=== PATIENT | male | born 1990 | race Caucasian/White ===

== ENCOUNTER 2022-01-15 12:05 | Emergency (ER) | payer MEDICAID ==
[~2022-01-15] VITALS: Ht 172.7 cm; Wt 79.4 kg
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
--- NOTE | 2022-01-15 12:16 | NUR ---
5150 HOLD BY RICHARD
--- NOTE | 2022-01-15 13:15 | NUR ---
DR CASPER AT BEDSIDE FOR EVAL.
[2022-01-15] MEDS ORDERED: LORAZEPAM INJ 2 MG/ML VIAL ONE (13:28)
[2022-01-15] MEDS ORDERED: OLANZAPINE 10 MG VIAL IM ONE ×2 (13:28→14:00)
[2022-01-15] MEDS ORDERED: LORAZEPAM 1 MG TABLET PO ONE (13:30)
--- NOTE | 2022-01-15 13:30 | NUR ---
BILLPOSTER AT BEDSIDE FOR BLOOD DRAW.
[2022-01-15 13:40] LABS: BASOPHILS % (AUTO) 0.2 % (0.0-2.0); EOSINOPHILS % (AUTO) 0.2 % (0.0-6.0); HEMATOCRIT 43 % (39-51); HEMOGLOBIN 15.2 g/dL (13.5-17.5); LYMPHOCYTES # (AUTO) 1.9 K/uL (0.8-4.8); LYMPHOCYTES % (AUTO) 18.7 % (20.0-44.0); MEAN CORPUSCULAR HGB CONC 35 g/dl (31.0-36.0); MEAN CORPUSCULAR VOLUME 92 fL (80-96); MONOCYTES # (AUTO) 0.9 K/uL (0.1-1.30); MONOCYTES % (AUTO) 8.5 % (2.0-12.0); NEUTROPHILS # (AUTO) 7.3 K/uL (1.8-8.9); NEUTROPHILS % (AUTO) 72.4 % (43.0-81.0); PLATELET COUNT (AUTO) 404 K/uL (150-450); RED BLOOD CELL COUNT(AUTO) 4.74 MIL/uL (4.5-6.0); WHITE BLOOD COUNT (AUTO) 10.1 K/uL (4.3-11.0)
[2022-01-15] MEDS ORDERED: LORAZEPAM INJ 2 MG/ML VIAL IM ONE (14:00)
[2022-01-15 14:03] LABS: CALCIUM, SERUM 10.3 mg/dL (8.5-10.1); CARBON DIOXIDE 27 mmol/L (21-32); CHLORIDE 102 mmol/L (98-107); GLUCOSE 97 mg/dL (74-106); POTASSIUM 3.6 mmol/L (3.5-5.1); SODIUM SERUM 142 mmol/L (136-145); UREA NITROGEN, BLOOD 9 mg/dL (7-18)
[2022-01-15 14:15] LABS: ALANINE AMINOTRANSFERASE 21 U/L (12-78); ALBUMIN 4.5 g/dL (3.4-5.0); ALCOHOL, BLOOD < 3 mg/dL (0-0); ALKALINE PHOSPHATASE 69 U/L (46-116); ASPARTATE AMINOTRANSFERASE 24 U/L (15-37); BILIRUBIN,DIRECT 0.3 mg/dL (0.0-0.2); BILIRUBIN,TOTAL 1.2 mg/dL (0.2-1.0); TOTAL PROTEIN, SERUM 8.1 g/dL (6.4-8.2)
--- NOTE | 2022-01-15 14:24 | NUR ---
URINE SAMPLE COLLECTED. SENT TO LAB.
[2022-01-15 14:26] LABS: ACETAMINOPHEN < 10 ug/ml (10-30)
[2022-01-15 15:03] LABS: BILIRUBIN,URINE NEGATIVE (NEGATIVE); COLOR,URINE YELLOW (YELLOW); LEUKOCYTE ESTERASE ,URINE NEGATIVE (NEGATIVE); NITRITE, URINE NEGATIVE (NEGATIVE); PROTEIN,URINE 1+ mg/dl (NEGATIVE); UGLUCOSE NEGATIVE (NEGATIVE); UROBILINOGEN,URINE 0.2 EU/dL (0.2)
[2022-01-15 15:14] LABS: BACTERIA,URINE Few /HPF (None Seen); RBC,URINE 0-2 /HPF (0-2); SQUAMOUS EPITHELIAL CELL,UR Few /HPF (None Seen); WBC,URINE 0-2 /HPF (0-3)
[2022-01-15 15:15] LABS: URINE AMORPHOUS PHOSPHATES Moderate /HPF (None Seen)
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
--- NOTE | 2022-01-15 22:01 | NUR ---
MONTRELL PAGED FOR PSYCH EVAL
--- NOTE | 2022-01-15 23:11 | NUR ---
MONTRELL AT PT'S BEDSIDE FOR EVAL
--- NOTE | 2022-01-15 23:45 | NUR ---
covid antigen swab collected and sent to lab
--- NOTE | 2022-01-16 05:44 | NUR ---
covid result faxed to marcelino at [facility]
--- NOTE | 2022-01-16 07:15 | NUR ---
RECEIVED PT FROM [facility] no distress
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
--- NOTE | 2022-01-16 07:58 | NUR ---
[facility] CALLED FOR TRANSPORT ETA [id number]
--- NOTE | 2022-01-16 08:35 | NUR ---
MAMIE CALDERA AT BED FOR PLACE THE PT
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
--- NOTE | 2022-01-16 09:38 | NUR ---
Joseph schaefer in ED - 01/16/22 at 0939 by APATANGAN JARAD DENNY. [facility].
--- NOTE | 2022-01-16 09:39 | NUR ---
NEW ETA 20 MINS. [facility].
[2022-01-16 10:05] VITALS: BP 131/73
--- NOTE | 2022-01-16 10:17 | NUR ---
FRIDA MOTHER [phone]
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
== END 2022-01-16 10:28 ==
LOC: EDBD 12:27 → ER 12:27
DX: F23 Brief psychotic disorder (principal); F15.10 Other stimulant abuse, uncomplicated; R00.0 Tachycardia, unspecified; R03.0 Elevated blood-pressure reading, without diagnosis of hypertension; Z20.822 Contact with and (suspected) exposure to COVID-19
CPT/HCPCS: 99285; 96372 ×2; 85025; 80048; 80076; 81001; 36415; 87426; 80143; 80320; 80307; J2060; J3490; A6407; C9803; G0480

== ENCOUNTER 2022-02-06 10:54 | Emergency (ER) | payer MEDICAID, OTHER ==
[~2022-02-06] VITALS: Ht 167.6 cm; Wt 74.8 kg
[2022-02-06] MEDS: QUETIAPINE FUMARATE 25 MG TABLET PO ONE (11:28)
[2022-02-06] MEDS ORDERED: QUETIAPINE FUMARATE 25 MG TABLET ONE (11:28)
--- NOTE | 2022-02-06 11:30 | NUR ---
seroquel po given as indicated
[2022-02-06 14:39] VITALS: BP 140/85
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
== END 2022-02-06 14:42 ==
LOC: ER 10:56
DX: F20.9 Schizophrenia, unspecified; F19.90 Other psychoactive substance use, unspecified, uncomplicated
CPT/HCPCS: 82962-TC

== ENCOUNTER 2022-03-20 09:48 | Emergency (ER) | payer OTHER ==
[~2022-03-20] VITALS: Ht 175.3 cm; Wt 74.8 kg
--- NOTE | 2022-03-20 10:00 | NUR ---
RECEIVED PT CAME BY Flory brewster to [facility] WITH OCTAVIO MORENO # [id number] [facility]
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
[2022-03-20] MEDS ORDERED: ACETAMINOPHEN ES 500 MG TABLET PO ONE (10:30)
[2022-03-20] MEDS ORDERED: ACETAMINOPHEN ES 500 MG TABLET ONE (10:42)
--- NOTE | 2022-03-20 10:55 | NUR ---
TO CT ROLAND OF HEAD
--- NOTE | 2022-03-20 11:44 | NUR ---
SEEN BY DR. DICK
--- NOTE | 2022-03-20 12:03 | NUR ---
PT MEDICALLY CLEARED AND DISCHARGED WITH [employer]. WALKING WITH STEADY GAIT. AAOX4. VSS. PT VERBALIZED UNDERSTANDING TO DISCHARGE INSTRUCTION.
--- NOTE | 2022-03-20 12:07 | NUR ---
AWAITING DIPOSITION OF PATIENT BY .
--- NOTE | 2022-03-20 12:07 | NUR ---
Joseph schaefer in [facility] - 03/20/22 at 1209 by PASTOR Patient discharged to home in stable condition. Written and verbal after care instructions given. Patient verbalizes understanding of instruction.
[2022-03-20 12:17] VITALS: BP 132/66
== END 2022-03-20 12:19 ==
LOC: ER 09:54
DX: S00.83XA Contusion of other part of head, initial encounter (principal); W22.8XXA Striking against or struck by other objects, initial encounter; Y93.89 Activity, other specified; Y92.89 Other specified places as the place of occurrence of the external cause; Y99.8 Other external cause status
CPT/HCPCS: 70450-TC